=== PATIENT | female | born 1955 | race Caucasian/White ===

== ENCOUNTER 2023-08-18 14:18 | Emergency (ER) | payer MEDICAID, OTHER ==
[~2023-08-18] VITALS: Ht 165.1 cm; Wt 68.0 kg
[~2023-08-18 14:18] MED LIST: MELO7.5T11 PO; RANI50VI
[2023-08-18 14:24] VITALS: BP 136/86; PULSE 94; RESP 18; TEMP 98.3; O2SAT 96
[2023-08-18 14:33] VITALS: TEMP 98.3
[2023-08-18] MEDS: KETOROLAC 30 MG/ML VIAL IM ONE (15:22)
[2023-08-18 16:30] VITALS: BP 135/85; PULSE 69; RESP 18; O2SAT 98
[2023-08-18] MEDS ORDERED: IBUP-2213 PO (17:42)
== END 2023-08-18 17:47 | disposition home or self-care (01) ==
LOC: MED 14:18
DX: S09.90XA Unspecified injury of head, initial encounter (principal); S00.12XA Contusion of left eyelid and periocular area, initial encounter; S40.021A Contusion of right upper arm, initial encounter; Z79.1 Long term (current) use of non-steroidal anti-inflammatories (NSAID); Z79.899 Other long term (current) drug therapy; W01.198A Fall on same level from slipping, tripping and stumbling with subsequent striking against other object, initial encounter; Y93.89 Activity, other specified; Y92.59 Other trade areas as the place of occurrence of the external cause; Y99.8 Other external cause status
CPT/HCPCS: 70450; 96372; 99285; J1885

== ENCOUNTER 2023-08-20 10:26 | Emergency (ER) | payer MEDICARE, OTHER ==
[~2023-08-20] VITALS: Ht 160 cm; Wt 64.9 kg
[~2023-08-20 10:26] MED LIST changes: +IBUP-2213 PO
[2023-08-20 10:31] VITALS: BP 151/82; PULSE 80; RESP 16; TEMP 97.4; O2SAT 99
[2023-08-20] MEDS: FLUORESCEIN OPTH STRIP 1 MG OP ONE (10:50)
[2023-08-20] MEDS: TETRACAINE HCL/PF 0.5% OPTH 4 ML BTL OP ONE (10:50)
[2023-08-20] MEDS: methocarbamoL 500 MG TAB PO ONE (11:02)
[2023-08-20] MEDS: LIDOCAINE 5% 1 EA PATCH TP ONE (11:02)
[2023-08-20] MEDS ORDERED: POLY10DR5 OP (11:04)
[2023-08-20] MEDS ORDERED: LID5T TP (11:04)
[2023-08-20] MEDS: ACETAMINOPHEN 325 MG TAB PO ONE (11:07)
[2023-08-20 11:14] VITALS: BP 151/82; PULSE 80; RESP 16; TEMP 97.4; O2SAT 99
== END 2023-08-20 11:13 | disposition home or self-care (01) ==
LOC: MED 10:26
DX: S16.1XXA Strain of muscle, fascia and tendon at neck level, initial encounter (principal); S05.12XA Contusion of eyeball and orbital tissues, left eye, initial encounter; S05.11XA Contusion of eyeball and orbital tissues, right eye, initial encounter; Z79.899 Other long term (current) drug therapy; Z98.890 Other specified postprocedural states; X58.XXXA Exposure to other specified factors, initial encounter; Y93.89 Activity, other specified; Y92.89 Other specified places as the place of occurrence of the external cause; Y99.8 Other external cause status
CPT/HCPCS: 99284